=== PATIENT | male | born 1960 | race Hispanic/Latino ===

== ENCOUNTER 2020-01-03 15:37 | Inpatient (IN) | payer MEDICARE, OTHER, SELFPAY ==
[~2020-01-03] VITALS: Ht 154.9 cm; Wt 48.4 kg
[2020-01-03 17:08] LABS: BASOPHILS % (AUTO) 0.3 % (0.0-5.0); EOSINOPHILS % (AUTO) 0.1 % (0.0-8.0); HEMATOCRIT 26.5 % (42-54); LYMPHOCYTES % (AUTO) 3.7 % (21.0-51.0); MEAN CORPUSCULAR HEMOGLOBIN 19.3 pg (27.0-33.0); MEAN CORPUSCULAR HGB CONC 32.1 g/dL (32.0-36.0); MEAN CORPUSCULAR VOLUME 60.2 fL (79-99); MONOCYTES % (AUTO) 2.8 % (3.0-13.0); NEUTROPHILS % (AUTO) 92.5 % (40.0-77.0); PLATELET COUNT (AUTO) 362 K/uL (130-400); RED CELL DISTRIBUTION WIDTH 23.9 % (11.0-15.5); WHITE BLOOD COUNT (AUTO) 15.6 K/uL (4.8-10.8)
[2020-01-03 17:22] LABS: INR 1.23 (0.85-1.15); PARTIAL THROMBOPLASTIN TIME 35.7 SEC (26.3-35.5); PROTHROMBIN TIME 13.2 SEC (9.6-11.6)
[2020-01-03 17:34] LABS: ALBUMIN 2.3 g/dL (3.5-5.0); BILIRUBIN,TOTAL 0.6 mg/dL (0.2-1.0); CREATININE 1.1 mg/dL (0.5-1.5); TOTAL PROTEIN, SERUM 8.3 g/dL (6.0-8.3)
[2020-01-03 17:36] LABS: POTASSIUM 2.7 mmol/L (3.5-5.1)
[2020-01-03] MEDS ORDERED: ZOSYN 3.375GM+NS 50ML 50 ML IV ONE (19:14)
[2020-01-03] MEDS ORDERED: POTASSIUM CHLORIDE 20MEQ/100ML 100 ML IV ONE (19:14)
[2020-01-03] MEDS ORDERED: METRONIDAZOLE 500MG/100ML BAG 100 ML ONE (19:15)
[2020-01-03] MEDS ORDERED: SODIUM CHLORIDE 0.9% 1000ML 1,000 ML IV ONE (19:15)
[2020-01-03] MEDS ORDERED: ONDANSETRON HCL 4 MG/2 ML VIAL IV PRN (19:30)
[2020-01-03] MEDS ORDERED: HYDRALAZINE HCL 20 MG/ML VIAL IV PRN (19:30)
[2020-01-03] MEDS ORDERED: ACETAMINOPHEN 325 MG TAB PO PRN ×2 (19:30)
[2020-01-03] MEDS ORDERED: LACTULOSE 20 GM/30 ML UDCUP PO PRN (19:30)
[2020-01-03] MEDS: METRONIDAZOLE 500MG/100ML BAG 100 ML IV SCH (20:00)
[2020-01-03] MEDS ORDERED: LIDOCAINE HCL-MPF 1% 2ML VIAL ONE (20:04)
--- NOTE | 2020-01-03 21:35 | NUR ---
PATIENT RECEIVED FROM ER, AAOX3, NO ACUTE DISTRESS. PATIENT IS VERY [facility]. DX INCARCERATED LEFT INGUINAL HERNIA WITH BOWEL OBSTRUCTION AND POSSIBLE PERFORATION. PATIENT ORIENTED TO ROOM AND ENVIRONMENT, ASSESSMENT COMPLETED AND POC DISCUSSED WITH PATIENT. INFORMED HIM THAT HE IS NPO UNTIL EVALUATED BY MD. CALL MORALES IS WITH IN REACH. WILL CONT TO MONITOR CLOSELY.
[2020-01-03 21:40] VITALS: BP 118/66
[2020-01-03 22:07] LABS: APPEARANCE,URINE Clear (CLEAR); BILIRUBIN,URINE Negative (NEGATIVE); COLOR,URINE Yellow (YELLOW); GLUCOSE, URINE (UA) Negative (NEGATIVE); KETONES,URINE 15 mg/dL (NEGATIVE); LEUKOCYTE ESTERASE ,URINE Negative (NEGATIVE); NITRATE,URINE Negative (NEGATIVE); OCCULT BLOOD,URINE Negative (NEGATIVE); PH,URINE 6.5 (5.0-8.0); PROTEIN,URINE POS 2+ mg/dL (NEGATIVE)
[2020-01-03] MEDS ORDERED: LISI10TA7 PO (22:07)
[2020-01-03] MEDS ORDERED: SIME180C46 PO (22:07)
[2020-01-03] MEDS ORDERED: MULT-1082 PO (22:07)
[2020-01-03] MEDS ORDERED: WARF4TAB72 PO (22:07)
[2020-01-03] MEDS ORDERED: PRAV40TA3 PO (22:07)
[2020-01-03] MEDS ORDERED: LEVE500T19 PO (22:07)
[2020-01-03 22:14] LABS: BACTERIA,URINE Rare /HPF (None Seen); RBC,URINE 0-1 /HPF (0-1)
[2020-01-03 22:15] LABS: MUCUS,URINE Rare LPF (None Seen); SQUAMOUS EPITHELIAL CELL,UR Rare /HPF (0-2)
[2020-01-03 22:17] LABS: COARSE GRANULAR CASTS,URINE 0-2 /LPF (None Seen); HYALINE CASTS, URINE 0-1 /LPF (0-1 /LPF)
[2020-01-03] MEDS: FAMOTIDINE/PF 20 MG/2 ML VIAL IV SCH (22:30)
[2020-01-03] MEDS: MORPHINE SULFATE 2 MG/ML 1ML SYG IV PRN (22:31)
[2020-01-03] MEDS: SODIUM CHLORIDE 0.9% 1000ML 1,000 ML IV SCH (22:37)
[2020-01-03 23:52] VITALS: BP 116/61
[2020-01-04] VITALS (31 sets, daily range): BP systolic 112–167; BP diastolic 60–89
[2020-01-04] MEDS: MORPHINE SULFATE 2 MG/ML 1ML SYG IV PRN (02:39)
[2020-01-04] MEDS: LIDOCAINE HCL-MPF 1% 2ML VIAL IV PRN ×2 (03:11→06:53)
[2020-01-04] MEDS: POTASSIUM CHLORIDE 10MEQ/100ML 100 ML IV PRN ×2 (03:11→06:54)
[2020-01-04] MEDS: METRONIDAZOLE 500MG/100ML BAG 100 ML IV SCH ×3 (04:47→20:00)
[2020-01-04] MEDS: SODIUM CHLORIDE 0.9% 1000ML 1,000 ML IV SCH ×2 (05:22→15:22)
[2020-01-04] MEDS: ZOSYN 3.375GM+NS 50ML 50 ML IV SCH ×3 (05:48→20:00)
[2020-01-04 06:23] LABS: BASOPHILS % (AUTO) 0.2 % (0.0-5.0); EOSINOPHILS % (AUTO) 0.1 % (0.0-8.0); HEMATOCRIT 25.1 % (42-54); LYMPHOCYTES % (AUTO) 5.7 % (21.0-51.0); MEAN CORPUSCULAR HEMOGLOBIN 19.1 pg (27.0-33.0); MEAN CORPUSCULAR HGB CONC 31.1 g/dL (32.0-36.0); MEAN CORPUSCULAR VOLUME 61.4 fL (79-99); MONOCYTES % (AUTO) 2.7 % (3.0-13.0); NEUTROPHILS % (AUTO) 90.3 % (40.0-77.0); PLATELET COUNT (AUTO) 331 K/uL (130-400); RED BLOOD CELL COUNT(AUTO) 4.09 MIL/uL (4.50-6.20); RED CELL DISTRIBUTION WIDTH 24.5 % (11.0-15.5); WHITE BLOOD COUNT (AUTO) 12.8 K/uL (4.8-10.8)
[2020-01-04 06:42] LABS: INR 1.31 (0.85-1.15); PARTIAL THROMBOPLASTIN TIME 39.6 SEC (26.3-35.5)
[2020-01-04 06:44] LABS: CREATININE 0.8 mg/dL (0.5-1.5); POTASSIUM 3.2 mmol/L (3.5-5.1)
[2020-01-04] MEDS: ENOXAPARIN SODIUM 40 MG/0.4 ML SYRINGE SQ SCH (09:00)
[2020-01-04] MEDS ORDERED: DEXAMETHASONE SOD PHOSPHATE 10MG/ML 1ML VIAL ONE (09:34)
[2020-01-04] MEDS ORDERED: ONDANSETRON HCL 4 MG/2 ML VIAL ONE (09:34)
[2020-01-04] MEDS ORDERED: LIDOCAINE PF 2% 5ML ABBOJECT ONE (09:34)
[2020-01-04] MEDS ORDERED: PROPOFOL 10 MG/ML 20ML VIAL IV ONE (09:35)
[2020-01-04] MEDS ORDERED: GLYCOPYRROLATE 1 MG/5 ML SYRINGE ONE (09:35)
[2020-01-04] MEDS ORDERED: NEOSTIGMINE 5MG/5ML SYR IV ONE (09:35)
[2020-01-04] MEDS ORDERED: MIDAZOLAM HCL 1 MG/ML 2ML VIAL ONE (09:35)
[2020-01-04] MEDS ORDERED: ROCURONIUM 10MG/1ML SYR 10 MG/ML ML ONE ×2 (09:36→12:16)
[2020-01-04] MEDS ORDERED: FENTANYL CITRATE PF 50 MCG/1 ML 2ML VIAL ONE ×4 (09:36→12:58)
[2020-01-04] MEDS ORDERED: KETAMINE 50MG/ML SYRINGE 50 MG/ML DISP.SYRIN IV ONE (09:55)
[2020-01-04] MEDS ORDERED: ALBUMIN (HUMAN) 5% 0 ML IV ONE (09:56)
[2020-01-04] MEDS ORDERED: BUPIVACAINE/PF 0.5% 10ML VIAL ONE (10:01)
[2020-01-04] MEDS ORDERED: EPHEDRINE SULFATE 50 MG/ML AMPULE ONE (10:04)
[2020-01-04] MEDS: FAMOTIDINE/PF 20 MG/2 ML VIAL IV SCH ×2 (10:07→21:09)
[2020-01-04] MEDS ORDERED: ALBUMIN (HUMAN) 5% 250 ML IV ONE (10:14)
[2020-01-04] MEDS ORDERED: LACTATED RINGERS 1000ML 1,000 ML IV ONE (10:26)
--- NOTE | 2020-01-04 10:27 | NUR ---
TRANSFERRED TO O.R. BY AUBREY DUMONT AND TECH. PT CONTINUES WITH ABDOMINAL TENDERNESS. DENIES ANY SOB, NO RESPIRATORY DISTRESS. RESP EVEN, UNLABORED.
[2020-01-04] MEDS ORDERED: POTASSIUM CHLORIDE 20MEQ/100ML 100 ML IV ONE (11:13)
[2020-01-04 11:29] LABS: ABG OXYGEN SATURATION 99.6 % (95.0-99.0); ABG PCO2 39 mmHg (35-48)
--- NOTE | 2020-01-04 11:41 | NUR ---
Chart reviewed, ACF created/posted. Patient currently in surgery; CM deferred phone interview/initial assessment with family during this time, will follow up post op. Addendum: 01/04/20 at 1143 by IONA SALAZAR RN CM Amended: Links added.
[2020-01-04] MEDS ORDERED: SODIUM BICARB 8.4% 50ML SYRINGE ONE (11:51)
--- NOTE | 2020-01-04 12:06 | NUR ---
CM Note Unable to assess due to patient being in surgery. SW will follow up.
--- NOTE | 2020-01-04 12:34 | NUR ---
UPDATED PHONE NUMBERS-DAUGHTER CHUCK PHONE NUMBER [phone] CM REC'D THIS PHONE NUMBER AND INFO FROM PRIMARY RN SUSAN, FAXED TO REGISTRATION AND UPDATED AMNA LUNA WHO WILL CONTACT DAUGHTER FOR IA
[2020-01-04] MEDS ORDERED: PHARMACY COMMUNICATION MISC SCH (12:45)
--- NOTE | 2020-01-04 13:15 | NUR ---
PATIENT ARRIVED TO ICU PATIENT ARRIVED FROM OR TO ICU ROOM 208 AT 1315 ACCOMPANIED BY OR TEAM. PATIENT INTUBATED WITH PIV AND A LINE. ABDOMINAL INCISION CLEAN AND DRY, COLOSTOMY BAG SECURED. DR. HORTON NOTIFIED OF CONSULTATION, GAVE ORDERS FOR FENTANYL AND VERSED DRIP TO START. HE STATED HE WILL BE BY LATER TO SEE AND ASSESS PATIENT.
[2020-01-04] MEDS ORDERED: PROMETHAZINE HCL 25 MG TABLET PO PRN (14:30)
[2020-01-04] MEDS ORDERED: LORAZEPAM 2 MG MODERATE IVP PRN (14:30)
[2020-01-04] MEDS ORDERED: CHLORDIAZEPOXIDE HCL 25 MG CAP MODERATE PO PRN (14:30)
[2020-01-04] MEDS ORDERED: ACETAMINOPHEN EXTRA STRENGTH 500 MG TABLET PO PRN (14:30)
[2020-01-04] MEDS ORDERED: CHLORDIAZEPOXIDE 50MG SEVERE PO PRN (14:30)
[2020-01-04] MEDS ORDERED: ONDANSETRON HCL 4 MG/2 ML VIAL IV PRN (14:30)
[2020-01-04] MEDS ORDERED: LORAZEPAM 4 MG SEVERE IVP PRN (14:30)
[2020-01-04] MEDS: MIDAZOLAM 50MG-0.9% NS 50ML 50 ML BAG IV SCH (17:50)
[2020-01-04] MEDS: FENTANYL 1000MCG+NS 100ML 100 ML IV SCH (17:50)
[2020-01-04] MEDS: BANANA BAG IV SCH ×4 (18:22)
[2020-01-05] VITALS (24 sets, daily range): BP systolic 106–158; BP diastolic 49–84
[2020-01-05] MEDS: METRONIDAZOLE 500MG/100ML BAG 100 ML IV SCH ×3 (03:07→20:55)
[2020-01-05] MEDS: ZOSYN 3.375GM+NS 50ML 50 ML IV SCH ×3 (04:09→22:20)
[2020-01-05] MEDS: FENTANYL 1000MCG+NS 100ML 100 ML IV SCH (04:12)
[2020-01-05] MEDS: SODIUM CHLORIDE 0.9% 1000ML 1,000 ML IV SCH ×3 (04:12→22:31)
[2020-01-05 04:46] LABS: BASOPHILS % (AUTO) 0.2 % (0.0-5.0); LYMPHOCYTES % (AUTO) 5.1 % (21.0-51.0); MEAN CORPUSCULAR HEMOGLOBIN 21.6 pg (27.0-33.0); MEAN CORPUSCULAR HGB CONC 32.1 g/dL (32.0-36.0); MEAN CORPUSCULAR VOLUME 67.4 fL (79-99); MONOCYTES % (AUTO) 3.4 % (3.0-13.0); NEUTROPHILS % (AUTO) 90.6 % (40.0-77.0); PLATELET COUNT (AUTO) 265 K/uL (130-400); RED CELL DISTRIBUTION WIDTH 26.5 % (11.0-15.5); WHITE BLOOD COUNT (AUTO) 10.9 K/uL (4.8-10.8)
[2020-01-05 04:59] LABS: INR 1.12 (0.85-1.15); PARTIAL THROMBOPLASTIN TIME 39.6 SEC (26.3-35.5)
[2020-01-05] MEDS: MIDAZOLAM 50MG-0.9% NS 50ML 50 ML BAG IV SCH (05:34)
[2020-01-05 05:47] LABS: ALBUMIN 1.7 g/dL (3.5-5.0); BILIRUBIN,TOTAL 0.5 mg/dL (0.2-1.0); CREATININE 0.5 mg/dL (0.5-1.5); PHOSPHORUS 2.6 mg/dL (2.5-4.9); POTASSIUM 3.2 mmol/L (3.5-5.1); TOTAL PROTEIN, SERUM 5.9 g/dL (6.0-8.3)
[2020-01-05] MEDS: POTASSIUM CHLORIDE 10MEQ/100ML 100 ML IV PRN ×2 (05:57→09:05)
[2020-01-05] MEDS: LIDOCAINE HCL-MPF 1% 2ML VIAL IV PRN (09:06)
[2020-01-05] MEDS: FAMOTIDINE/PF 20 MG/2 ML VIAL IV SCH ×2 (09:06→20:55)
[2020-01-05] MEDS: BANANA BAG IV SCH ×4 (09:44)
[2020-01-05 10:07] LABS: ABG BASE EXCESS -5.5 mmol/L (-2.0-3.0); ABG HCO3 18.3 mmol/L (21.0-28.0); ABG OXYGEN SATURATION 99.5 % (95.0-99.0); ABG PCO2 32 mmHg (35-48)
[2020-01-05] MEDS: ENOXAPARIN SODIUM 40 MG/0.4 ML SYRINGE SQ SCH (10:15)
--- NOTE | 2020-01-05 11:21 | NUR ---
AMBIKA PLAN PATIENT TAKEN DOWN FOR SURGERY. NORA WILL CONTINUE TO FOLLOW. Addendum: 01/05/20 at 1122 by HYUN AMES RN CM Amended: Links added.
--- NOTE | 2020-01-05 11:35 | NUR ---
INITIAL Spoke to patient's daughter, Jing Sheehan, [phone]. Another emergency is daughter, Donna Sheehan, [phone]. No home services or DME. As per daughter, Patient was able to complete ADL's independently and drove before being hospitalized. Daughter stated that she plans to move in with patient once he is discharged from hospital. Patient has no PCP. Pharmacy is [facility] located on [facility] in [place]. DCP is home but family will consider alternate placement if recommended by MD. Addendum: 01/05/20 at 1155 by CHERYL CARRASCO SS Amended: Links added. Addendum: 01/05/20 at 1519 by CHERYL CARRASCO SS SW received a call from nurse with [facility] . Patient is active with their agency X 1 week. CM made aware
[2020-01-05 13:34] LABS: ABG BASE EXCESS -2.2 mmol/L (-2.0-3.0); ABG OXYGEN SATURATION 98.9 % (95.0-99.0); ABG PCO2 32 mmHg (35-48)
[2020-01-06] VITALS (35 sets, daily range): BP systolic 124–168; BP diastolic 60–87
[2020-01-06] MEDS: METRONIDAZOLE 500MG/100ML BAG 100 ML IV SCH ×3 (04:31→21:05)
[2020-01-06 05:10] LABS: HEMATOCRIT 29.8 % (42-54); MEAN CORPUSCULAR HEMOGLOBIN 21.5 pg (27.0-33.0); MEAN CORPUSCULAR HGB CONC 32.2 g/dL (32.0-36.0); MEAN CORPUSCULAR VOLUME 66.7 fL (79-99); PLATELET COUNT (AUTO) 331 K/uL (130-400); RED BLOOD CELL COUNT(AUTO) 4.47 MIL/uL (4.50-6.20); RED CELL DISTRIBUTION WIDTH 27.4 % (11.0-15.5); WHITE BLOOD COUNT (AUTO) 11.7 K/uL (4.8-10.8)
[2020-01-06] MEDS: ZOSYN 3.375GM+NS 50ML 50 ML IV SCH ×3 (05:25→21:05)
[2020-01-06 05:26] LABS: CREATININE 0.5 mg/dL (0.5-1.5)
[2020-01-06 05:29] LABS: POTASSIUM 2.7 mmol/L (3.5-5.1)
[2020-01-06] MEDS: POTASSIUM CHLORIDE 10MEQ/100ML 100 ML IV PRN ×4 (05:30→17:14)
[2020-01-06] MEDS: FAMOTIDINE/PF 20 MG/2 ML VIAL IV SCH ×2 (08:56→21:05)
[2020-01-06] MEDS: ENOXAPARIN SODIUM 40 MG/0.4 ML SYRINGE SQ SCH (08:56)
[2020-01-06] MEDS: BANANA BAG IV SCH ×4 (09:02)
[2020-01-06] MEDS: SODIUM CHLORIDE 0.9% 1000ML 1,000 ML IV SCH (17:22)
[2020-01-07] VITALS (20 sets, daily range): BP systolic 123–148; BP diastolic 64–86
[2020-01-07] MEDS: SODIUM CHLORIDE 0.9% 1000ML 1,000 ML IV SCH ×4 (00:16→22:46)
[2020-01-07] MEDS: METRONIDAZOLE 500MG/100ML BAG 100 ML IV SCH ×3 (04:05→19:40)
[2020-01-07] MEDS: ZOSYN 3.375GM+NS 50ML 50 ML IV SCH ×3 (04:05→19:40)
[2020-01-07 04:16] LABS: BASOPHILS % (AUTO) 0.1 % (0.0-5.0); EOSINOPHILS % (AUTO) 0.4 % (0.0-8.0); HEMATOCRIT 30.2 % (42-54); MEAN CORPUSCULAR HEMOGLOBIN 21.6 pg (27.0-33.0); MEAN CORPUSCULAR HGB CONC 32.1 g/dL (32.0-36.0); MEAN CORPUSCULAR VOLUME 67.1 fL (79-99); MONOCYTES % (AUTO) 6.1 % (3.0-13.0); NEUTROPHILS % (AUTO) 79.8 % (40.0-77.0); PLATELET COUNT (AUTO) 324 K/uL (130-400); RED CELL DISTRIBUTION WIDTH 27.7 % (11.0-15.5); WHITE BLOOD COUNT (AUTO) 7.7 K/uL (4.8-10.8)
[2020-01-07 04:22] LABS: CREATININE 0.4 mg/dL (0.5-1.5); MAGNESIUM 1.9 mg/dL (1.80-2.40); PHOSPHORUS 2.6 mg/dL (2.5-4.9)
[2020-01-07 04:27] LABS: POTASSIUM 2.7 mmol/L (3.5-5.1)
[2020-01-07] MEDS ORDERED: POTASSIUM CHLORIDE 20MEQ/100ML 100 ML IV ONE (04:45)
[2020-01-07] MEDS: POTASSIUM CHLORIDE 20MEQ/100ML 100 ML IV PRN ×2 (08:12→09:24)
[2020-01-07] MEDS: LIDOCAINE HCL-MPF 1% 2ML VIAL IV PRN (08:12)
[2020-01-07] MEDS: FAMOTIDINE/PF 20 MG/2 ML VIAL IV SCH ×2 (08:14→19:40)
[2020-01-07] MEDS: ENOXAPARIN SODIUM 40 MG/0.4 ML SYRINGE SQ SCH (08:14)
[2020-01-07] MEDS ORDERED: POTASSIUM PHOS 15 mMOL+NS250ML 250 ML IV PRN (09:15)
--- NOTE | 2020-01-07 10:30 | NUR ---
MD ROUNDS DR SUNSHINE and DR OH IN TO SEE PT. PT IS AWAKE, ALERT, ORIENTED. INSTRUCTED TO PT BY DR SUNSHINE THAT HE NEEDS TO CONTINUE TO BE NPO FOR TODAY
--- NOTE | 2020-01-07 11:30 | NUR ---
OUT OF BED TO CHAIR WITH HELP FROM PHYSICAL THERAPY. NO COMPLAINTS OF DISCOMFORT
[2020-01-07 13:14] LABS: MAGNESIUM 1.8 mg/dL (1.80-2.40); POTASSIUM 3.8 mmol/L (3.5-5.1)
--- NOTE | 2020-01-07 18:35 | NUR ---
TRANSFERRED TO 404 WITHOUT INCIDENT. SBAR REPORT . ABDOMINAL BINDER IN PLACE.
[2020-01-08 04:00] VITALS: BP 137/75
[2020-01-08] MEDS: ZOSYN 3.375GM+NS 50ML 50 ML IV SCH ×3 (04:02→22:15)
[2020-01-08] MEDS: METRONIDAZOLE 500MG/100ML BAG 100 ML IV SCH ×3 (04:02→22:15)
[2020-01-08 05:48] LABS: HEMATOCRIT 31.2 % (42-54); MEAN CORPUSCULAR HEMOGLOBIN 21.7 pg (27.0-33.0); MEAN CORPUSCULAR HGB CONC 32.4 g/dL (32.0-36.0); MEAN CORPUSCULAR VOLUME 67.1 fL (79-99); PLATELET COUNT (AUTO) 317 K/uL (130-400); RED BLOOD CELL COUNT(AUTO) 4.65 MIL/uL (4.50-6.20); RED CELL DISTRIBUTION WIDTH 28.1 % (11.0-15.5); WHITE BLOOD COUNT (AUTO) 7.7 K/uL (4.8-10.8)
[2020-01-08 05:56] LABS: CREATININE 0.5 mg/dL (0.5-1.5)
[2020-01-08 05:57] LABS: POTASSIUM 2.9 mmol/L (3.5-5.1)
[2020-01-08 05:58] LABS: EOSINOPHILS % (MANUAL) 2 % (1-6); LYMPHOCYTES % (MANUAL) 12 % (22-44); MAN.DIFF COMMENT-IMPRESSION MANUAL DIFFERENTIAL; MONOCYTES % (MANUAL) 4 % (2-9); PLATELET MORPHOLOGY COMMENT ADEQUATE; SEGMENTED NEUTROPHILS % 82 % (40-70)
[2020-01-08] MEDS: POTASSIUM CHLORIDE 20MEQ/100ML 100 ML IV PRN ×2 (06:18→11:52)
[2020-01-08] MEDS: LIDOCAINE HCL-MPF 1% 2ML VIAL IV PRN (06:18)
[2020-01-08 08:27] VITALS: BP 137/71
[2020-01-08] MEDS: ENOXAPARIN SODIUM 40 MG/0.4 ML SYRINGE SQ SCH (10:09)
[2020-01-08] MEDS: FAMOTIDINE/PF 20 MG/2 ML VIAL IV SCH ×2 (10:09→22:15)
[2020-01-08] MEDS: SODIUM CHLORIDE 0.9% 1000ML 1,000 ML IV SCH ×2 (10:09→22:15)
[2020-01-08 11:15] VITALS: BP 126/64
[2020-01-08 16:08] VITALS: BP 137/77
--- NOTE | 2020-01-08 16:29 | NUR ---
CALL TO BRIAN DAUGHTER DICUSSED PLAN OF CARE- STATES FATHER STERLING EL WANT TO GO TO [facility], ADVISED HER BY JUST READING THE PT NOTES NSF LOOKS RECOMMENDED. STATES PLEASE TAKE TO PATIENT ABOUT IT, FAMILY IS IN AGREEMENT NEEDS THERAPY. WILL FOLLOW UP Addendum: 01/08/20 at 1633 by IONA SALAZAR RN CM Amended: Links added.
[2020-01-08 20:00] VITALS: BP 115/64
[2020-01-08 23:44] VITALS: BP 120/63
[2020-01-09 04:00] VITALS: BP 131/71
[2020-01-09] MEDS: METRONIDAZOLE 500MG/100ML BAG 100 ML IV SCH ×3 (05:43→20:15)
[2020-01-09] MEDS: ZOSYN 3.375GM+NS 50ML 50 ML IV SCH ×4 (05:44→20:15)
[2020-01-09] MEDS: LIDOCAINE HCL-MPF 1% 2ML VIAL IV PRN ×3 (05:48→16:03)
[2020-01-09] MEDS: POTASSIUM CHLORIDE 20MEQ/100ML 100 ML IV PRN ×2 (05:48→10:28)
[2020-01-09 07:42] VITALS: BP 115/67
[2020-01-09] MEDS: FAMOTIDINE/PF 20 MG/2 ML VIAL IV SCH ×2 (10:28→20:15)
[2020-01-09] MEDS: ENOXAPARIN SODIUM 40 MG/0.4 ML SYRINGE SQ SCH (10:29)
[2020-01-09 11:05] VITALS: BP 100/55
[2020-01-09] MEDS ORDERED: MAGNESIUM 2GM PREMIX 50ML 50 ML IV PRN (14:00)
[2020-01-09] MEDS: POTASSIUM CHLORIDE 10MEQ/100ML 100 ML IV PRN (16:02)
[2020-01-09 16:54] VITALS: BP 137/62
[2020-01-09 19:10] VITALS: BP 150/75
[2020-01-09] MEDS: POTASSIUM CHLORIDE 20 MEQ in SODIUM CHLORIDE 0.9% 1000ML 1,000 ML IV SCH (20:15)
--- NOTE | 2020-01-09 20:15 | NUR ---
MEDS SHIFT ASSESSMENT DONE, PLEASE REFER TO CHART. DUE MEDS ADMINISTERED, TOLERATED WELL. KEPT NPO EXCEPT SIPS OF WATER. KEPT RESTED AND COMFORTABLE. CALL LIGHT WITHIN REACH. WILL MONITOR PT. Addendum: 01/10/20 at 0201 by BRANDIN BRUCE RN RN Amended: Links added.
[2020-01-09 20:26] LABS: MAGNESIUM 1.8 mg/dL (1.80-2.40); POTASSIUM 3.5 mmol/L (3.5-5.1)
[2020-01-09 23:51] VITALS: BP 140/70
[2020-01-10] MEDS: POTASSIUM CHLORIDE 20MEQ/100ML 100 ML IV PRN ×2 (00:50→06:25)
[2020-01-10] MEDS: LIDOCAINE HCL-MPF 1% 2ML VIAL IV PRN ×2 (00:52→06:25)
--- NOTE | 2020-01-10 02:00 | NUR ---
ROUNDS PT SLEPT AT INTERVAL AND AWAKENS WHEN HOSPITAL PHARMACIST ENTERS ROOM. NO COMPLAINTS VERBALIZED. KEPT RESTED AND ENCOURAGED TO GO BACK TO SLEEP. CONTINUED IV KCL AND MG REPLACEMENT. WILL MONITOR PT.
[2020-01-10] MEDS: MAGNESIUM 2GM PREMIX 50ML 50 ML IV SCH (02:03)
[2020-01-10 03:05] VITALS: BP 135/77
[2020-01-10] MEDS: METRONIDAZOLE 500MG/100ML BAG 100 ML IV SCH ×3 (03:25→20:15)
[2020-01-10] MEDS: ZOSYN 3.375GM+NS 50ML 50 ML IV SCH ×3 (04:11→20:15)
[2020-01-10] MEDS: POTASSIUM CHLORIDE 20 MEQ in SODIUM CHLORIDE 0.9% 1000ML 1,000 ML IV SCH ×4 (04:42→23:35)
--- NOTE | 2020-01-10 05:14 | NUR ---
ROUNDS PT RESTING WELL. NO COMPLAINTS VERBALIZED. NO DISTRESS NOTED. KEPT STILL NPO. KEPT COMFORTABLE. FOR MORE CARE.
[2020-01-10 05:31] LABS: HEMATOCRIT 34.5 % (42-54); MEAN CORPUSCULAR HEMOGLOBIN 21.8 pg (27.0-33.0); MEAN CORPUSCULAR HGB CONC 31.9 g/dL (32.0-36.0); MEAN CORPUSCULAR VOLUME 68.5 fL (79-99); PLATELET COUNT (AUTO) 335 K/uL (130-400); RED BLOOD CELL COUNT(AUTO) 5.04 MIL/uL (4.50-6.20); RED CELL DISTRIBUTION WIDTH 28.8 % (11.0-15.5); WHITE BLOOD COUNT (AUTO) 6.9 K/uL (4.8-10.8)
[2020-01-10 05:59] LABS: CREATININE 0.5 mg/dL (0.5-1.5); MAGNESIUM 2.4 mg/dL (1.80-2.40); PHOSPHORUS 2.9 mg/dL (2.5-4.9); POTASSIUM 3.4 mmol/L (3.5-5.1)
[2020-01-10 08:00] VITALS: BP 115/71
[2020-01-10] MEDS: FAMOTIDINE/PF 20 MG/2 ML VIAL IV SCH ×2 (09:39→20:15)
[2020-01-10] MEDS: ENOXAPARIN SODIUM 40 MG/0.4 ML SYRINGE SQ SCH (09:39)
[2020-01-10 11:44] VITALS: BP 111/67
[2020-01-10] MEDS: LEVETIRACETAM 500 MG in SODIUM CHLORIDE 0.9% 100 ML IV SCH ×2 (12:07→23:00)
--- NOTE | 2020-01-10 13:39 | NUR ---
LEE ANN SCREEN - LOS X 7, NPO X 7 DAYS PT S/P GALLOWAY'S PROCEDURE WITH SIGMOID COLON RESECTION. PENDING SURGICAL EVAL FOR DIET ADVANCEMENT. WHEN MEDICALLY FEASIBLE, RECOMMEND ADVANCE TO CLEAR LIQUID DIET ORDER. PT WITH MILD FAT/MUSCLE LOSS, MALNUTRITION RISK. PT ALSO WITH COUMADIN IN PLACE. PENDING NUTRITION EDUCATION ASSESSMENT. RD TO CONTINUE TO MONITOR. PLEASE NOTIFY NUTRITIONAL CONCERNS ARISE. THANK YOU. Addendum: 01/10/20 at [address] Amended: Links added.
--- NOTE | 2020-01-10 15:28 | NUR ---
SPOKE TO PATIENT AT BEDSIDE RE AFTERCARE. PATIENT STATES DOES NOT WANT TO GO TO ANY FACILITY Addendum: 01/10/20 at 1529 by IONA SALAZAR RN CM Amended: Links added.
[2020-01-10 16:00] VITALS: BP 125/74
[2020-01-10] MEDS ORDERED: CYANOCOBALAMIN (VITAMIN B-12) 1,000 MCG TABLET PO SCH (18:00)
[2020-01-10 20:00] VITALS: BP 122/70
--- NOTE | 2020-01-10 20:15 | NUR ---
MEDS SHIFT ASSESSMENT DONE, PLEASE REFER TO CHART. DUE MEDS ADMINISTERED, TOLERATED WELL. KEPT RESTED AND COMFORTABLE IN BED. CALL LIGHT WITHIN REACH. WILL MONITOR PT. Addendum: 01/10/20 at 2250 by BRANDIN BRUCE RN RN Amended: Links added.
[2020-01-10 23:57] VITALS: BP 133/72
--- NOTE | 2020-01-11 01:42 | NUR ---
ROUNDS PT RESTING WELL, FAIRLY ASLEEP. NO DISTRESS NOTED. KEPT UNDISTURBED FOR NOW. WILL MONITOR PT. CALL LIGHT WITHIN REACH.
[2020-01-11] MEDS: METRONIDAZOLE 500MG/100ML BAG 100 ML IV SCH ×3 (03:44→21:15)
[2020-01-11] MEDS: ZOSYN 3.375GM+NS 50ML 50 ML IV SCH ×3 (03:44→21:15)
[2020-01-11 04:04] VITALS: BP 136/74
--- NOTE | 2020-01-11 06:04 | NUR ---
ROUNDS PT RESTING WELL. NO CONCERNS VERBALIZED. KEPT COMFORTABLE. FOR MORE CARE AND MANAGEMENT.
[2020-01-11 06:27] LABS: CREATININE 0.5 mg/dL (0.5-1.5); POTASSIUM 3.7 mmol/L (3.5-5.1)
[2020-01-11 06:33] LABS: HEMATOCRIT 37.2 % (42-54); MEAN CORPUSCULAR HEMOGLOBIN 22.2 pg (27.0-33.0); MEAN CORPUSCULAR HGB CONC 31.7 g/dL (32.0-36.0); MEAN CORPUSCULAR VOLUME 69.9 fL (79-99); PLATELET COUNT (AUTO) 221 K/uL (130-400); RED BLOOD CELL COUNT(AUTO) 5.32 MIL/uL (4.50-6.20); RED CELL DISTRIBUTION WIDTH 29.4 % (11.0-15.5); WHITE BLOOD COUNT (AUTO) 6.7 K/uL (4.8-10.8)
[2020-01-11 09:02] VITALS: BP 134/62
[2020-01-11] MEDS: FOLIC ACID 1 MG TABLET PO SCH (10:44)
[2020-01-11] MEDS: CYANOCOBALAMIN (VITAMIN B-12) 1,000 MCG TABLET PO SCH (10:44)
[2020-01-11] MEDS: ENOXAPARIN SODIUM 40 MG/0.4 ML SYRINGE SQ SCH (10:44)
[2020-01-11] MEDS: FAMOTIDINE/PF 20 MG/2 ML VIAL IV SCH ×2 (10:44→21:15)
[2020-01-11 11:00] VITALS: BP 96/54
[2020-01-11] MEDS: LEVETIRACETAM 500 MG in SODIUM CHLORIDE 0.9% 100 ML IV SCH ×2 (11:38→23:03)
[2020-01-11] MEDS: POTASSIUM CHLORIDE 20 MEQ in SODIUM CHLORIDE 0.9% 1000ML 1,000 ML IV SCH ×2 (11:38→23:03)
[2020-01-11] MEDS ORDERED: COMPOUND IV MISC 1 EACH IVSOLN MISC PRN (12:00)
--- NOTE | 2020-01-11 15:22 | NUR ---
ADVISED BY SUSAN THAT DR. SUNSHINE DID ORDER HH FOR PATIENT CALL TO DR. SUNSHINE'S OFFICE, ALFREDO DON IS PREFERRED HH PROVIDER FOR DR. SUNSHINE. CALL TO DAUGHTER BRIAN, FLORIN REC'D BRIAN STATES WILL BE LOOKING AFTER PT AT HER [place] ADDRESS- [id number] [address] DISCUSSED OSTOMY SUPPLIES- ADVISED THAT OSTOMY WILL BE CHANGED AND MEASURED THIS AFTER NOON TO ENSURE THAT CORRECT SIZE IS ORDERED
--- NOTE | 2020-01-11 17:18 | NUR ---
HOME HEALTH WILL BE [facility]- CM TO FOLLOW UP IN AM, ALFREDO DON DECLINED, CALL MADE TO DR. FINE OFFICE, [facility] IS HOME HEALTH THAT NEEDS TO BE REFERRED TO IF FAMILY AGREES CM TO FOLLOW UP TO SEND REFERRAL IN AM
[2020-01-11 19:40] VITALS: BP 114/61
[2020-01-11 23:37] VITALS: BP 102/63
[2020-01-12 03:58] VITALS: BP 100/60
[2020-01-12] MEDS: ZOSYN 3.375GM+NS 50ML 50 ML IV SCH ×3 (04:05→21:56)
[2020-01-12] MEDS: METRONIDAZOLE 500MG/100ML BAG 100 ML IV SCH ×3 (04:05→20:34)
[2020-01-12 04:35] LABS: CREATININE 0.5 mg/dL (0.5-1.5); MAGNESIUM 1.5 mg/dL (1.80-2.40)
[2020-01-12 05:11] LABS: POTASSIUM 6.2 mmol/L (3.5-5.1)
--- NOTE | 2020-01-12 05:12 | NUR ---
K+: 6.2 Informed on-call hospitalist ( LOTTIE Daigle ) with an order to change IVF to NS at 100 and that he'll be the one to put in the kayexalate order. IVF changed and Kayexalate 30 gms po given as ordered.
[2020-01-12] MEDS: SODIUM CHLORIDE 0.9% 1000ML 1,000 ML IV SCH ×2 (05:37→12:56)
[2020-01-12] MEDS: SODIUM POLYSTYRENE SULFONATE 15 GM/60 ML ML PO SCH ×2 (05:38→19:38)
[2020-01-12] MEDS: MAGNESIUM 2GM PREMIX 50ML 50 ML IV SCH (06:13)
--- NOTE | 2020-01-12 09:15 | NUR ---
COLOSTOMY BAG CHANGED COLOSTOMY ACTIVE. EXPLAINED PROCEDURE OF CHANGING COLOSTOMY, PT VERBALIZED UNDERSTANDING. COLOSTOMY CHANGED: ELEONORA 8513 BAG USED. OSTOMY MEASURES 4.0CMX4.2CM. COLOSTOMY BAG MEASURED CUT AT 2 1/2 AND PLACED OVER OSTOMY WITHOUT DIFFICULTY. OSTOMY ACTIVE AND DRAINING. WILL CONTINUE TO MONITOR.
[2020-01-12 09:21] LABS: CREATININE 0.6 mg/dL (0.5-1.5)
[2020-01-12 09:25] LABS: POTASSIUM 2.7 mmol/L (3.5-5.1)
[2020-01-12 09:29] LABS: ALBUMIN 1.6 g/dL (3.5-5.0); BILIRUBIN,DIRECT 0.1 mg/dL (0.0-0.3); BILIRUBIN,TOTAL 0.3 mg/dL (0.2-1.0); TOTAL PROTEIN, SERUM 5.6 g/dL (6.0-8.3)
[2020-01-12 09:40] VITALS: BP 98/55
[2020-01-12] MEDS ORDERED: POTASSIUM CHLORIDE 20 MEQ ERTAB PO SCH (10:00)
[2020-01-12] MEDS: FAMOTIDINE/PF 20 MG/2 ML VIAL IV SCH ×2 (10:20→20:35)
[2020-01-12] MEDS: CYANOCOBALAMIN (VITAMIN B-12) 1,000 MCG TABLET PO SCH (10:22)
[2020-01-12] MEDS: FOLIC ACID 1 MG TABLET PO SCH (10:22)
--- NOTE | 2020-01-12 10:23 | NUR ---
CM NOTE/ALFREDO DON DECLINED PER [facility], PATIENT NOT IN NETWORK. BOTH DAUGHTERS CALLED, BRIAN PRICE [phone] AND SHADI [phone] REGARDING DECLINE, NO ANSWER, VOICEMAIL LEFT FOR BRIAN. PENDING CALL BACK WITH CONSENT FOR [facility]. I CALLED PATIENT ROOM, PER PATIENT, [facility] AND WOULD RATHER DAUGHTER MAKE DECISION. PENDING CALL BACK FROM FAMILY. NURSE, SUSAN RN, TO MEASURE COLOSTOMY. CM TO FOLLOW UP.
[2020-01-12] MEDS: ENOXAPARIN SODIUM 40 MG/0.4 ML SYRINGE SQ SCH (10:26)
[2020-01-12 11:38] VITALS: BP 82/50
[2020-01-12] MEDS: LEVETIRACETAM 500 MG in SODIUM CHLORIDE 0.9% 100 ML IV SCH ×2 (12:39→21:56)
--- NOTE | 2020-01-12 12:50 | NUR ---
CM NOTE/REFERRAL SENT TO DAUGHTER CALLED BACK, VERBAL CONSENT GIVEN FOR . CLINICAL PACKET FAXED TO , PENDING CONFIRMATION. CM TO FOLLOW UP
--- NOTE | 2020-01-12 13:45 | NUR ---
DR. BAKER IN AND NOTIFIED 40MEQ PO KCL GIVEN PER DR. COMER AND DR. BAKER SAID THAT WAS GOOD. NEW ORDERS RECEIVED AND CARRIED OUT. WILL CONTINUE TO MONITOR.
[2020-01-12] MEDS ORDERED: AMILORIDE HCL 5 MG TABLET PO SCH (13:55)
--- NOTE | 2020-01-12 14:13 | NUR ---
CM NOTE/[facility] APPROVED IN REGARDS TO [facility] REFERRAL, CHERYL FROM APPROVED AND ACCEPTED PATIENT. PER CHERYL, COLOSTOMY SUPPLIES WILL BE ORDERED AND WOUND CARE WILL BE PROVIDED TO PATIENT. PRIMARY NURSE, SUSAN BURGOS, MADE AWARE. PER NURSE, NO DISCHARGE TODAY, PENDING NEPHROLOGY CONSULT. CM TO FOLLOW. DAUGHTER, BRIAN, CALLED AND MADE AWARE OF ACCEPTANCE TO .
[2020-01-12 16:00] LABS: PROTEIN,URINE RANDOM 25.9 mg/dL (0-11.9)
--- NOTE | 2020-01-12 16:00 | NUR ---
CM NOTE/[facility] CALLED, PER , PATIENT ALREADY IN SERVICE WITH [facility]. BRIAN, DAUGHTER CALLED, TO CONFIRM. PER BRIAN, "SOMEONE COMES TO THE HOUSE MAYBE ONCE PER WEEK BUT ONLY TO CHECK BLOODWORK". [facility] CALLED, PER , PATIENT IN SERVICE AND PT/INR ARE CHECK. PER [facility], COLOSTOMY CARE CAN ALSO BE DONE. PER BRIAN, OK TO SEND CLINICAL INFORMATION TO [facility]. DR. JOSE OFFICE CALLED BUT OFFICE CLOSED,NO ANSWER. CLINICAL PACKET AND ORDER FOR SERVICE FAXED AND CONFIRMED RECEIVED AT [facility]. WILL CALL DR. SUNSHINE OFFICE IN AM TO REPORT HH SWITCH AND CANCEL WITH [facility].
[2020-01-12 16:25] VITALS: BP 87/55
[2020-01-12 20:17] VITALS: BP 108/66
--- NOTE | 2020-01-12 20:27 | NUR ---
AUBREY CAMACHOTESTER [employer]LECTRON[employer] SCALE MADE AWARE OF COLOSTOMY BAG USED AND MEASUREMENTS, JANICE VERBALIZED UNDERSTANDING. INFORMED ANOTHER COLOSTOMY BAG IN ROOM AT BEDSIDE.
[2020-01-12 23:40] VITALS: BP 122/63
[2020-01-13 04:00] VITALS: BP 108/62
[2020-01-13 05:05] LABS: CREATININE 0.6 mg/dL (0.5-1.5); MAGNESIUM 1.9 mg/dL (1.80-2.40); POTASSIUM 3.5 mmol/L (3.5-5.1)
[2020-01-13] MEDS: ZOSYN 3.375GM+NS 50ML 50 ML IV SCH ×3 (05:30→21:01)
[2020-01-13] MEDS: METRONIDAZOLE 500MG/100ML BAG 100 ML IV SCH ×2 (05:30→11:47)
[2020-01-13 05:38] LABS: % IRON SATURATION 18.7 % (30-44)
[2020-01-13 08:00] VITALS: BP 93/52
[2020-01-13] MEDS: FAMOTIDINE/PF 20 MG/2 ML VIAL IV SCH ×2 (08:31→21:01)
[2020-01-13] MEDS: CYANOCOBALAMIN (VITAMIN B-12) 1,000 MCG TABLET PO SCH (08:31)
[2020-01-13] MEDS: FOLIC ACID 1 MG TABLET PO SCH (08:31)
[2020-01-13] MEDS: ENOXAPARIN SODIUM 40 MG/0.4 ML SYRINGE SQ SCH (08:31)
[2020-01-13] MEDS: LEVETIRACETAM 500 MG in SODIUM CHLORIDE 0.9% 100 ML IV SCH ×2 (11:47→21:14)
[2020-01-13 12:00] VITALS: BP 113/66
[2020-01-13] MEDS ORDERED: AMILORIDE HCL 5 MG TABLET PO SCH (13:50)
--- NOTE | 2020-01-13 14:55 | NUR ---
RD FOLLOW UP NOTE Pt s/p Colectomy, as per EMR. Pt tolerating GI Soft [place] Diet order, Fair PO intake. No report of GI distress. Recommend Ensure as needed. RD to continue to monitor PO intake. Please notify as additional nutrition concerns arise. Thank you. Addendum: 01/13/20 at [address] Amended: Links added.
[2020-01-13 16:00] VITALS: BP 99/60
[2020-01-13 19:53] VITALS: BP 119/63
[2020-01-13] MEDS: SODIUM CHLORIDE 0.9% 1000ML 1,000 ML IV SCH (21:01)
[2020-01-13 23:56] VITALS: BP 115/65
[2020-01-14 04:00] VITALS: BP 119/63
[2020-01-14 05:54] LABS: CREATININE 0.5 mg/dL (0.5-1.5); MAGNESIUM 1.9 mg/dL (1.80-2.40); POTASSIUM 3.6 mmol/L (3.5-5.1)
[2020-01-14 08:00] VITALS: BP 131/72
[2020-01-14] MEDS: CYANOCOBALAMIN (VITAMIN B-12) 1,000 MCG TABLET PO SCH (09:44)
[2020-01-14] MEDS: FOLIC ACID 1 MG TABLET PO SCH (09:44)
[2020-01-14] MEDS: ENOXAPARIN SODIUM 40 MG/0.4 ML SYRINGE SQ SCH (09:44)
[2020-01-14] MEDS: FAMOTIDINE/PF 20 MG/2 ML VIAL IV SCH (09:44)
[2020-01-14] MEDS: SODIUM CHLORIDE 0.9% 1000ML 1,000 ML IV SCH (09:50)
[2020-01-14 11:41] VITALS: BP 118/66
[2020-01-14] MEDS ORDERED: FOLI1 PO (12:11)
[2020-01-14] MEDS ORDERED: AMOX-426 PO (12:11)
[2020-01-14] MEDS ORDERED: CYAN-52 PO (12:11)
[2020-01-14] MEDS: LEVETIRACETAM 500 MG in SODIUM CHLORIDE 0.9% 100 ML IV SCH (12:50)
[2020-01-14 16:00] VITALS: BP 148/75
--- NOTE | 2020-01-14 16:30 | NUR ---
REPORT REPORT GIVEN TO TANA AT [facility]. TANA STATED SOMEONE FROM HER AGENCY WOULD BE CONTACTING THE PATIENT TOMORROW.
--- NOTE | 2020-01-14 17:49 | NUR ---
PATIENT DISCHARGED PATIENT DISCHARGED, IV x2 DISCONTINUED, CATHLON INTACT BLEEDING CONTROLLED, PATIENT TOLERATED WITHOUT INCIDENT. DISCUSSED WITH PATIENT TO FOLLOW UP WITH PCP 3-5 DAYS AND THAT HE NEEDED TO CALL TO SCHEDULE APPOINTMENT DUE TO OFFICE CLOSED. DISCUSSED WITH PATIENT TO FOLLOW UP WITH SURGEON DR. SUNSHINE IN 1 WEEK AND THAT HE NEEDED TO CALL TO SCHEDULE APPOINTMENT DUE TO OFFICE BEING CLOSED. INFORMED HIM THAT NEW PRESCRIPTIONS WERE SENT ELECTRONICALLY TO [place], [facility]. INFORMED PATIENT THAT HE WAS TO NO LONGER TAKE WARFARIN. PATIENT REPEATED EACH INSTRUCTION BACK TO ME AND STATED HE UNDERSTOOD. SECURITY WAS CALLED TO BRING UP PATIENTS PROPERTY. PATIENT STATED HE NEEDED TO CALL HIS DAUGHTER TO PICK HIM UP FOR TRANSPORTATION HOME. I DIRECTED PATIENT TO LET ME KNOW WHEN SHE WAS HERE AND WE WOULD GIVE HIM A RIDE DOWN STARES. PATIENT STATED HE UNDERSTOOD.
[2020-07-19] MEDS ORDERED: METR500T PO (13:56)
[2020-07-19] MEDS ORDERED: CIPR-245 PO (13:56)
[2020-07-19] MEDS ORDERED: HYDR12.54 PO (13:57)
== END 2020-01-14 19:15 | disposition home health service (06) | DRG 853 ==
LOC: EDH 15:37 → EDHIP 19:22 → 4DH 20:40 → 2BH 01-04 12:54 → 4AH 01-07 17:50 → 3BH 01-09 15:48
PROVIDERS: ADMIT Internal Medicine; ATTEND Internal Medicine
PROC: 30233N1 Transfusion of Nonautologous Red Blood Cells into Peripheral Vein, Percutaneous Approach (ICD-10-PCS; 2020-01-04)
PROC: 0D9670Z Drainage of Stomach with Drainage Device, Via Natural or Artificial Opening (ICD-10-PCS; 2020-01-04)
PROC: 0DBN0ZZ Excision of Sigmoid Colon, Open Approach (ICD-10-PCS; principal; 2020-01-04 10:40)
PROC: 0YQ60ZZ Repair Left Inguinal Region, Open Approach (ICD-10-PCS; 2020-01-04 10:40)
PROC: 0D1M0Z4 Bypass Descending Colon to Cutaneous, Open Approach (ICD-10-PCS; 2020-01-04 10:40)
DX: A41.9 Sepsis, unspecified organism (principal); K63.1 Perforation of intestine (nontraumatic); K65.0 Generalized (acute) peritonitis; K56.7 Ileus, unspecified; K40.30 Unilateral inguinal hernia, with obstruction, without gangrene, not specified as recurrent; E87.1 Hypo-osmolality and hyponatremia; E44.1 Mild protein-calorie malnutrition; E87.3 Alkalosis; I10 Essential (primary) hypertension; E87.6 Hypokalemia; E78.00 Pure hypercholesterolemia, unspecified; K59.09 Other constipation; D64.9 Anemia, unspecified; E78.5 Hyperlipidemia, unspecified; F10.20 Alcohol dependence, uncomplicated; F17.210 Nicotine dependence, cigarettes, uncomplicated; G40.909 Epilepsy, unspecified, not intractable, without status epilepticus; I73.9 Peripheral vascular disease, unspecified; J43.9 Emphysema, unspecified; E86.1 Hypovolemia; N19 Unspecified kidney failure; Z68.20 Body mass index [BMI] 20.0-20.9, adult; Z79.01 Long term (current) use of anticoagulants; Z86.718 Personal history of other venous thrombosis and embolism
CPT/HCPCS: 36415; 71045; 74176; 80048; 80053; 80076; 81001; 82150; 82270; 82435; 82533; 82550; 82570; 82803; 82947; 82948; 83540; 83550; 83605; 83690; 83735; 83930; 83935; 84100; 84132; 84145; 84156; 84295; 84443; 84484; 85018; 85025; 85027; 85610; 85730; 86850; 86900; 86901; 86922; 87040; 87070; 87076; 87077; 87186; 87804; 88302; 88307; 93005; 94002; 94003; 97039; A5061; G0378; J1100; J1650; J1953; J2001; J2250; J2405; J2543; J2704; J2710; J3010; J3411; J3475; J3480; J3490; J7030; J7120; P9016; P9045

== ENCOUNTER → 2021-01-28 | Outpatient (CLI) | payer MEDICARE ==
[~2021-01-28] MED LIST: CIPR500T10 PO; CYAN-52 PO; HYDR12.54 PO; IOHEXOL 350 MG/ML 100ML INFUS..BTL IV ONE; LEVE500T19 PO; METR500T PO; PRAV40TA3 PO; SIME180C70 PO
== END | disposition home or self-care (01) ==
LOC: OIH 08:53
PROVIDERS: ATTEND Internal Medicine Gastroenterology
DX: R10.9 Unspecified abdominal pain (principal)
CPT/HCPCS: 74178; Q9967

== ENCOUNTER → 2021-03-25 | Outpatient (CLI) | payer MEDICARE ==
[~2021-03-25] MED LIST changes: -IOHEXOL 350 MG/ML 100ML INFUS..BTL IV ONE
[2021-03-25 09:44] LABS: CREATININE 0.7 mg/dL (0.5-1.5)
== END | disposition home or self-care (01) ==
LOC: LAB 09:12
PROVIDERS: ATTEND Otolaryngology Plastic Surgery within the Head & Neck
DX: H90.3 Sensorineural hearing loss, bilateral (principal)
CPT/HCPCS: 36415; 82565; 84520

== ENCOUNTER → 2021-04-03 | Outpatient (CLI) | payer MEDICARE ==
[~2021-04-03] MED LIST changes: +GADOTERATE MEGLUMINE 10 MMOL/20 ML VIAL IV ONE
== END | disposition home or self-care (01) ==
LOC: RAH 08:45
PROVIDERS: ATTEND Otolaryngology Plastic Surgery within the Head & Neck
DX: H90.3 Sensorineural hearing loss, bilateral (principal); G31.89 Other specified degenerative diseases of nervous system
CPT/HCPCS: 70553; A9575

== ENCOUNTER → 2023-01-16 | Outpatient (CLI) | payer MEDICARE ==
[~2023-01-16] MED LIST changes: -GADOTERATE MEGLUMINE 10 MMOL/20 ML VIAL IV ONE
[2023-01-16 11:40] LABS: CREATININE 0.8 mg/dL (0.5-1.5)
[2023-01-16 13:51] LABS: POTASSIUM 4.1 mmol/L (3.5-5.1)
[2023-01-16 20:29] LABS: CREATININE 0.7 mg/dL (0.5-1.5); POTASSIUM 3.9 mmol/L (3.5-5.1)
== END | disposition home or self-care (01) ==
LOC: LAB 10:49
PROVIDERS: ATTEND Internal Medicine Gastroenterology
DX: R93.89 Abnormal findings on diagnostic imaging of other specified body structures (principal)
CPT/HCPCS: 36415; 80048

== ENCOUNTER → 2023-01-20 | Outpatient (CLI) | payer MEDICARE ==
[~2023-01-20] MED LIST changes: +IOHEXOL-350 75 ML VIAL IV ONE
== END | disposition home or self-care (01) ==
LOC: RAH 09:09
PROVIDERS: ATTEND Internal Medicine Gastroenterology
DX: R93.89 Abnormal findings on diagnostic imaging of other specified body structures (principal)
CPT/HCPCS: 74178; Q9967

== ENCOUNTER → 2023-05-29 | Outpatient (CLI) | payer OTHER ==
[~2023-05-29] MED LIST changes: -IOHEXOL-350 75 ML VIAL IV ONE
== END | disposition home or self-care (01) ==
LOC: RAH 11:13
PROVIDERS: ATTEND Physician Assistant Medical
DX: R63.4 Abnormal weight loss (principal)
CPT/HCPCS: 71046